=== PATIENT | female | born 1980 | race Caucasian/White ===

== ENCOUNTER 2016-11-15 15:40 | Emergency (ER) | payer SELFPAY ==
[~2016-11-15 15:40] MED LIST: BACT800T5 PO; HYDR-3533 PO; NAPR500 PO; PENI500T PO
[2016-11-15 15:42] VITALS: BP 114/73; PULSE 83; RESP 19; TEMP 99.2; O2SAT 99
[2016-11-15] MEDS ORDERED: LIDO1SOL8 SWISH-SWAL (17:24)
--- NOTE | 2016-11-15 17:24 | PD ---
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 THIS HAS HAPPENED OVER THE LAST 3 DAYS. DENIES WEIGHT LOSS/FEVER/COUGH/N/V/D/ABD PAIN/CP PFSH Past Medical History Diminished Hearing: No ?: Not LMP: 10/20/16 : 7 Para: 4 Miscarriage: 2 Tubal Ligation: Yes Social History Alcohol Use: No Tobacco Use: Yes (1 PPD) Substance Use: Yes (PT USES CRACK, STATES "1 HIT TODAY,' ALSO TOOK 3, 1 MG XANAX.) Allergies-Medications (Allergen,Severity, Reaction): Coded Allergies: No Known Allergies (Verified , 10/13/15) Reported Meds & Prescriptions Reported Meds & Active Scripts Active Lidocaine Viscous Liq 2 % Liqd 5 Ml SWISH-SWAL QID PRN Naprosyn (Naproxen) 500 Mg Tab 500 Mg PO BID PRN Lortab 5 mg/325 mg (Hydrocodone/Acetaminophen 5 mg/325 mg) 1 Tab 1 Tab PO Q6H PRN Pen Vk (Penicillin V Potassium) 500 Mg Tab 500 Mg PO TID Bactrim DS (Sulfamethoxazole-Trimethoprim DS) 1 Tab Tab 1 Tab PO BID 5 Days Review of Systems Except as stated in HPI: all other systems reviewed are Neg HENT: Positive: Sore Throat Physical Exam Narrative GENERAL: PATIENT IS RELAXED AND CONVERSANT WITHOUT ANY SIGNS OF DISTRESS. SKIN: Warm and dry. HEAD: Atraumatic. Normocephalic. EYES: Pupils equal and round. No scleral icterus. No injection or drainage. ENT: No nasal bleeding or discharge. Mucous membranes pink and moist. NL OROPHARYNX, NEG LAD, NO STRIDOR. SPEAKS CLEARLY, TOLERATING SECRETIONS NECK: Trachea midline. No JVD. CARDIOVASCULAR: Regular rate and rhythm. RESPIRATORY: No accessory muscle use. Clear to auscultation. Breath sounds equal bilaterally. NO TACHYPNEA/WHEEZING/HYPOXEMIA NOTED AT ALL. GASTROINTESTINAL: Abdomen soft, non-tender, nondistended. Hepatic and splenic margins not palpable. MUSCULOSKELETAL: Extremities without clubbing, cyanosis, or edema. No obvious deformities. NEUROLOGICAL: Awake and alert. No obvious cranial nerve deficits. Motor grossly within normal limits. Five out of 5 muscle strength in the arms and legs. Normal speech. PSYCHIATRIC: Appropriate mood and affect; insight and judgment normal. Data Data Last Documented VS Vital Signs Date Time Temp Pulse Resp B/P Pulse Ox O2 Delivery O2 Flow Rate FiO2 11/15/16 15:42 99.2 83 19 114/73 99 Orders Urinalysis - C+S If Indicated (11/15/16 16:59) Ed Urine Pregnancytest Poc (11/15/16 16:59) Ct Soft Tiss Neck W/O Iv Cont (11/15/16 ) Group A Rapid Strep Screen (11/15/16 17:24) Influenzae A/B Antigen (11/15/16 17:24) Urine Culture (11/15/16 17:14) Strep Culture (Group A) (11/15/16 17:34) Labs Laboratory Tests Test 11/15/16 17:14 Urine Color YELLOW Urine Turbidity HAZY Urine pH 6.5 Urine Specific [place] 1.015 Urine Protein NEG mg/dL Urine Glucose (UA) NEG mg/dL Urine Ketones NEG mg/dL Urine Occult Blood NEG Urine Nitrite NEG Urine Bilirubin NEG Urine Urobilinogen LESS THAN 2.0 MG/DL Urine Leukocyte Esterase LARGE Urine RBC 4 /hpf Urine WBC 14 /hpf Urine Squamous Epithelial 9 /hpf Cells Urine Bacteria RARE /hpf Urine Yeast (Budding) OCC Microscopic Urinalysis Comment CULTURE INDICATED MDM Medical Decision Making Medical Screen Exam Complete: Yes Emergency Medical Condition: Yes Medical Record Reviewed: Yes Differential Diagnosis AIRWAY FB V ESOPHAGEAL FB V EPIGLOTITTIS V RETROPHARYNGEAL ABSCESS Narrative Course NEG AT BEDSIDE, FLU/STREP SWABS NEGATIVE, CT DID NOT SHOW ANY E/O FB/ EPIGLOTITIS/ABSCESS, ADDITIONALLY PATIENT WAS FOUND TO HAVE A UTI. WILL D/C WITH ABX AND REFERRAL TO TELEMEDICINE PHYSICIAN Diagnosis Primary Impression: Warts, genital Additional Impressions: Sore throat UTI Referrals: [facility]URTHER CARE AND [facility] Scripts Ciprofloxacin 500 Mg [id number] Mg PO BID #14 TAB Prov:Jacek Oneill MD 11/15/16 Lidocaine Viscous Liq 2 % Liqd5 Ml SWISH-SWAL QID PRN (PAIN) #1 BOTTLE Ref 0 Prov:Jacek Oneill MD 11/15/16 Disposition: 01 DISCHARGE HOME Condition: Stable Jacek Oneill MD Nov 15, 2016 17:24
[2016-11-15 17:31] LABS: BACTERIA, URINE RARE /hpf; BLOOD, URINE NEG (NEG); COMMENT (UR) CULTURE INDICATED; CULTURE IF INDICATED CULTURE INDICATED; GLUCOSE,URINE NEG (NEG); KETONE, URINE NEG (NEG); NITRITE,URINE NEG (NEG); PH, URINE 6.5 (5.0-8.5); SQUAMOUS EPITHELIAL CELL URINE 9 /hpf (0-5); URINE COLOR YELLOW (YELLW/STRAW)
[2016-11-15] MEDS ORDERED: CIPR500T2 PO (18:05)
--- NOTE | 2016-11-15 18:37 | RADRPT ---
EXAM DATE/TIME: 11/15/2016 18:04 [place] COMPARISON: No previous studies available for comparison. INDICATIONS : Sore throat. RADIATION DOSE: 23.02 CTDIvol (mGy) MEDICAL HISTORY : None SURGICAL HISTORY : None. ENCOUNTER: Initial ACUITY: >1 yr PAIN SCORE: 7/10 LOCATION: throat TECHNIQUE: Volumetric scanning of the neck was performed. Using automated exposure control and adjustment of th e mA and/or kV according to patient size, radiation dose was kept as low as reasonably achievable to obtain optimal diagnostic quality images. DICOM format image data is available electronically for re view and comparison. FINDINGS: Examination limited without intravenous contrast. The nasopharynx is unremarkable. Both tonsils are prominent. Base of the tongue is asymmetrical more so on the right than the left. Multiple small nonspecific lymph nodes are seen more so on the left than the right. The thyroid is unremarkable. CONCLUSION: Limited exam the lack of intravenous contrast asymmetrical soft tissues base of tongue right side non specific adenopathy. Follow up is suggested. Abscess cannot be entirely excluded. Renny Mei MD FACR on November 15, 2016 at 18:34 Board Certified Radiologist. This report was verified electronically.
[2016-11-15] MEDS ORDERED: METR-1 PO (18:43)
[2016-11-15 18:47] VITALS: BP 118/78
== END 2016-11-15 18:48 | disposition home or self-care (01) ==
LOC: NEPD 15:40
DX: A63.0 Anogenital (venereal) warts (principal); J02.9 Acute pharyngitis, unspecified; N39.0 Urinary tract infection, site not specified; B96.89 Other specified bacterial agents as the cause of diseases classified elsewhere; F17.200 Nicotine dependence, unspecified, uncomplicated
CPT/HCPCS: 70490; 81001; 84703; 87081; 87086; 87804; 87880; 99284

== ENCOUNTER 2017-01-06 14:43 | Emergency (ER) | payer SELFPAY ==
[~2017-01-06] VITALS: Ht 170.2 cm; Wt 87.9 kg
[~2017-01-06 14:43] MED LIST changes: +CIPR500T2 PO; +LIDO1SOL8 SWISH-SWAL; +METR-1 PO
[2017-01-06 14:55] VITALS: BP 110/59; PULSE 85; RESP 16; TEMP 99.3; O2SAT 97
[2017-01-06] MEDS ORDERED: GABA300C5 PO (15:21)
[2017-01-06] MEDS ORDERED: LITH600C PO (15:21)
[2017-01-06] MEDS ORDERED: BUPR150XL PO (15:21)
[2017-01-06] MEDS ORDERED: VIST25CA PO (15:21)
[2017-01-06 15:22] LABS: BLOOD, URINE LARGE (NEG); GLUCOSE,URINE NEG (NEG); KETONE, URINE NEG (NEG); NITRITE,URINE NEG (NEG); PH, URINE 6.5 (5.0-8.5)
[2017-01-06 15:30] LABS: METHOD OF COLLECTION CLEAN CATCH
[2017-01-06 15:31] LABS: URINE COLOR YELLOW (YELLW/STRAW)
[2017-01-06 15:32] LABS: COMMENT (UR) CULT NOT INDICATED; CULTURE IF INDICATED CULT NOT INDICATED
[2017-01-06 15:37] LABS: SQUAMOUS EPITHELIAL CELL URINE > 8 /hpf (0-5)
--- NOTE | 2017-01-06 16:14 | PD ---
HPI Chief Complaint: Complaint Time Seen by Provider: 15:58 Travel History International Travel<30 days: No Contact w/Intl Traveler<30days: No Traveled to known affect area: No History of Present Illness HPI 36-year-old female presents emergency department for evaluation of urinary frequency. She reports she was diagnosed with UTI last month and treated with antibiotics. She denies dysuria, fever or chills, abdominal pain, flank pain. Her only complaint is urinary frequency. Symptom severity mild. Duration one day. No alleviating factors PFSH Past Medical History Anxiety: Yes Depression: Yes Diminished Hearing: No Psychiatric: Yes Immunizations Current: No Tetanus Vaccination: > 5 Years Influenza Vaccination: No ?: Not : 7 Para: 4 Miscarriage: 2 Tubal Ligation: Yes Social History Alcohol Use: No Tobacco Use: Yes (1 PPD) Substance Use: Yes Allergies-Medications (Allergen,Severity, Reaction): Coded Allergies: No Known Allergies (Verified , 01/06/17) Reported Meds & Prescriptions Reported Meds & Active Scripts Active Reported Gabapentin 300 Mg Cap 300 Mg PO TID Vistaril (Hydroxyzine Pamoate) 25 Mg Cap 25 Mg PO HS [place] Carbonate 600 Mg Cap 1,200 Mg PO BID Wellbutrin Xl 24 HR (Bupropion HCl) 150 Mg Tab 150 Mg PO DAILY Review of Systems Except as stated in HPI: all other systems reviewed are Neg Genitourinary: Positive: Frequency Physical Exam Narrative GENERAL: Well-nourished, well-developed patient. SKIN: Focused skin assessment warm/dry. NECK: Supple, trachea midline. No JVD or lymphadenopathy. CARDIOVASCULAR: Regular rate and rhythm without murmurs, gallops, or rubs. RESPIRATORY: Breath sounds equal bilaterally. No accessory muscle use. GASTROINTESTINAL: Abdomen soft, non-tender, nondistended. MUSCULOSKELETAL: No cyanosis, or edema. BACK: Nontender without obvious deformity. No CVA tenderness. Data Data Last Documented VS Vital Signs Date Time Temp Pulse Resp B/P (MAP) Pulse Ox O2 Delivery O2 Flow Rate FiO2 01/06/17 14:55 99.3 85 16 110/59 (76) 97 Orders Orders Urinalysis - C+S If Indicated (01/06/17 15:12) Labs Laboratory Tests Test 01/06/17 15:10 Urine Collection Type CLEAN CATCH Urine Color YELLOW Urine Turbidity CLEAR Urine pH 6.5 Urine Specific [place] 1.019 Urine Protein NEG mg/dL Urine Glucose (UA) NEG mg/dL Urine Ketones NEG mg/dL Urine Occult Blood LARGE Urine Nitrite NEG Urine Bilirubin NEG Urine Leukocyte Esterase NEG Urine RBC 10-14 /hpf Urine WBC 3-5 /hpf Urine Squamous Epithelial Cells > 8 /hpf Microscopic Urinalysis Comment CULT NOT INDICATED Urine Collection Time 15:10 [facility] Medical Decision Making Medical Screen Exam Complete: Yes Emergency Medical Condition: Yes Differential Diagnosis UTI, pyelonephritis, urinary frequency Narrative Course 36-year-old female presents emergency department for evaluation of urinary frequency 1 day. Patient was concerned because she was diagnosed with UTI last month. She reports the symptoms are not similar to her previous UTI. UA is positive for RBCs only. Her urine does not indicate infection. Patient was instructed to follow-up with her PCP. Return if she develops new or worsening symptoms. Diagnosis Primary Impression: Urinary frequency Referrals: Primary Care Physician Additional Instructions: Follow-up with her primary doctor for recheck. Return to emergency department if he developed new or worsening symptoms. Disposition: 01 DISCHARGE HOME Condition: Stable Geri Mistry Jan 06, 2017 16:14
== END 2017-01-06 16:26 | disposition home or self-care (01) ==
LOC: PHEFT 14:43
DX: R35.0 Frequency of micturition (principal); F17.210 Nicotine dependence, cigarettes, uncomplicated
CPT/HCPCS: 81001; 99283